=== PATIENT | male | born 1945 | race Caucasian/White ===

== ENCOUNTER 2023-02-28 11:25 | Inpatient (IN) | payer MEDICARE, OTHER ==
[~2023-02-28] VITALS: Ht 177.8 cm; Wt 70.7 kg
[~2023-02-28 11:25] MED LIST: SODIUM CHLORIDE 0.9% 1,000 ML IV ONE; SODIUM CHLORIDE 0.9% 1,000 ML ONE
[2023-02-28] MEDS ORDERED: SODIUM CHLORIDE 0.9% 1,000 ML IV ONE ×2 (11:30→13:30)
[2023-02-28] MEDS ORDERED: DIAZEPAM 5 MG TABLET ONE (12:00)
[2023-02-28] MEDS ORDERED: ASPIRIN 81 MG CHEWABLE TABLET ONE (12:00)
[2023-02-28] MEDS ORDERED: DiphenhydrAMINE HCL 50 MG CAPSULE ONE (12:01)
[2023-02-28 12:41] LABS: GLUCOMETER DEV NAME(LOC) SDS.; GLUCOSE,POINT OF CARE 171 MG/DL (70-110)
[2023-02-28] MEDS ORDERED: ATOR40TA28 PO (12:42)
[2023-02-28] MEDS ORDERED: MIRA50TA PO (12:42)
[2023-02-28] MEDS ORDERED: METF-1211 PO (12:42)
[2023-02-28] MEDS ORDERED: ASPI-1450 PO (12:42)
[2023-02-28] MEDS ORDERED: CLOP75TA60 PO (12:42)
[2023-02-28] MEDS ORDERED: SACU1TAB PO (12:42)
[2023-02-28] MEDS ORDERED: METO-558 PO (12:42)
[2023-02-28] MEDS ORDERED: DAPA10TA PO (12:42)
[2023-02-28] MEDS ORDERED: ISOS30TA92 PO (12:42)
[2023-02-28] MEDS ORDERED: HEPARIN SODIUM 1000 UNITS/NS 1,000 ML ONE (13:11)
[2023-02-28] MEDS ORDERED: SODIUM BICARBONATE 50 MEQ/50 ML VIAL ONE (13:11)
[2023-02-28] MEDS ORDERED: LIDOCAINE/PF 1% 30 ML VIAL ONE (13:11)
[2023-02-28] MEDS ORDERED: IOHEXOL 300 MG/ML 100 ML VIAL ONE (13:11)
[2023-02-28 13:20] VITALS: BP 175/89
[2023-02-28] MEDS ORDERED: FentaNYL CITRATE PF 100 MCG/2 ML VIAL ONE (13:22)
[2023-02-28] MEDS ORDERED: MIDAZOLAM HCL 2 MG/2 ML VIAL ONE (13:22)
[2023-02-28] MEDS ORDERED: DiphenhydrAMINE HCL 50 MG CAPSULE PO ONE (13:30)
[2023-02-28] MEDS ORDERED: ASPIRIN 81 MG CHEWABLE TABLET PO ONE (13:30)
[2023-02-28] MEDS ORDERED: DIAZEPAM 5 MG TABLET PO ONE (13:30)
[2023-02-28] MEDS ORDERED: LIDOCAINE 1% 30 ML/SOD BICARB 8.4% 4 ML SQ ONE (13:45)
[2023-02-28] MEDS ORDERED: IOHEXOL 300 MG/ML 100 ML VIAL ICOR ONE (13:45)
[2023-02-28] MEDS ORDERED: HEPARIN SODIUM 2,000 UNITS in HEPARIN SODIUM 1000 UNITS/NS 1,000 ML IARTER ONE (13:45)
[2023-02-28] MEDS ORDERED: FentaNYL CITRATE PF 100 MCG/2 ML VIAL IVP ONE (13:45)
[2023-02-28] MEDS ORDERED: NITR0.4T52 SL (13:47)
[2023-02-28] MEDS ORDERED: ASPI-1522 PO (13:47)
[2023-02-28] MEDS ORDERED: METOPROLOL TARTRATE 5 MG/5 ML VIAL ONE ×2 (13:50→14:24)
[2023-02-28] MEDS ORDERED: NITROGLYCERIN 400 MCG/SUBLINGUAL SPRAY 4.9 GM BOTTLE SL ONE ×2 (13:58→14:00)
[2023-02-28] MEDS ORDERED: HEPARIN SODIUM,PORCINE 1,000 UNITS/ML 10 ML VIAL IVP ONE (14:00)
[2023-02-28] MEDS ORDERED: METOPROLOL TARTRATE 5 MG/5 ML VIAL IVP ONE ×2 (14:00→14:45)
[2023-02-28] MEDS ORDERED: MIDAZOLAM HCL 2 MG/2 ML VIAL IVP ONE (14:15)
[2023-02-28] MEDS ORDERED: CLOPIDOGREL BISULFATE 300 MG TABLET ONE (14:24)
[2023-02-28 14:26] VITALS: BP 155/92
[2023-02-28] MEDS ORDERED: CLOPIDOGREL BISULFATE 300 MG TABLET PO ONE (14:45)
[2023-02-28 21:20] VITALS: BP 157/81
[2023-02-28 21:30] VITALS: BP 160/82
[2023-03-01 00:03] VITALS: BP 143/78
[2023-03-01 04:59] VITALS: BP 153/90
[2023-03-01 07:18] VITALS: BP 139/84
[2023-03-01] MEDS ORDERED: CLOPIDOGREL BISULFATE 75 MG TABLET PO SCH (09:00)
[2023-03-01 10:07] VITALS: BP 141/67
== END 2023-03-01 13:55 | disposition home or self-care (01) | DRG 247 ==
LOC: CATHLAB 11:25 → 5N 11:26
PROVIDERS: ADMIT Internal Medicine Interventional Cardiology; ATTEND Internal Medicine Interventional Cardiology
PROC: 027035Z Dilation of Coronary Artery, One Artery with Two Drug-eluting Intraluminal Devices, Percutaneous Approach (ICD-10-PCS; principal; 2023-02-28)
PROC: 4A023N7 Measurement of Cardiac Sampling and Pressure, Left Heart, Percutaneous Approach (ICD-10-PCS; 2023-02-28)
PROC: B211YZZ Fluoroscopy of Multiple Coronary Arteries using Other Contrast (ICD-10-PCS; 2023-02-28)
PROC: B215YZZ Fluoroscopy of Left Heart using Other Contrast (ICD-10-PCS; 2023-02-28)
PROC: B240ZZ3 Ultrasonography of Single Coronary Artery, Intravascular (ICD-10-PCS; 2023-02-28)
PROC: B41FYZZ Fluoroscopy of Right Lower Extremity Arteries using Other Contrast (ICD-10-PCS; 2023-02-28)
DX: I25.110 Atherosclerotic heart disease of native coronary artery with unstable angina pectoris (principal); T82.855A Stenosis of coronary artery stent, initial encounter; I50.22 Chronic systolic (congestive) heart failure; I42.9 Cardiomyopathy, unspecified; E11.9 Type 2 diabetes mellitus without complications; E78.00 Pure hypercholesterolemia, unspecified; I11.0 Hypertensive heart disease with heart failure; Y92.89 Other specified places as the place of occurrence of the external cause; Z85.46 Personal history of malignant neoplasm of prostate; Z79.84 Long term (current) use of oral hypoglycemic drugs; Z95.810 Presence of automatic (implantable) cardiac defibrillator; Z79.82 Long term (current) use of aspirin; Z79.01 Long term (current) use of anticoagulants; Z79.899 Other long term (current) drug therapy
CPT/HCPCS: 75960; 82962; 92920; 92928; 93005; J1644; J2250; J3010; J3490; J7030; Q9967